=== PATIENT | male | born 1965 | race Caucasian/White ===

== ENCOUNTER 2017-02-28 10:04 | Inpatient (IN) | payer OTHER ==
[~2017-02-28] VITALS: Ht 167.6 cm; Wt 97.3 kg
[~2017-02-28 10:04] MED LIST: NAPROSYN500 MG PO; NAPROXEN500 MG PO; NO HOME MED; ULTRAM50 MG PO
[2017-02-28 10:30] LABS: HEMATOCRIT 41.5 % (38.0-50.0); MCH 26.3 PG (29.0-34.0); MCV 79.8 FL (86-99); MEAN PLAT.VOLUME 10.5 uM^3 (9.0-12.4); PLATELET COUNT 198 K/uL (156-360); RBC DIS.WIDTH-CV 12.7 % (11.8-14.6); RBC DIS.WIDTH-SD 36.2 % (39-53); WHITE BLOOD COUNT 12.8 K/uL (4.1-10.2)
[2017-02-28 10:40] LABS: CHLORIDE 102 mEq/L (99-109); SODIUM 135 mEq/L (136-147)
[2017-02-28 10:41] LABS: GLUCOSE 126 mg/dL (70-99)
[2017-02-28 10:43] LABS: ANION GAP 18 MEQ/L (2-14)
[2017-02-28 10:45] LABS: GFR ESTIMATE (CALCULATED) 4 mL/min/
[2017-02-28 10:46] LABS: UREA NITROGEN (BUN) 88 mg/dL (9-23)
[2017-02-28 15:06] LABS: COLOR YELLOW ((YELLOW)); GLUCOSE (STRIP) NEGATIVE; KETONES NEGATIVE; LEUKOCYTES LARGE; NITRITE NEGATIVE; PH, URINE 6.5 (5-8); PROTEIN (STRIP) 30; SPECIFIC GRAVITY 1.007 (1.000-1.030); UROBILINOGEN 0.2 MG/DL (0.2-1.0)
[2017-02-28 15:07] LABS: ADD MIUA? YES; BILIRUBIN NEGATIVE; BLOOD LARGE
[2017-02-28 15:08] LABS: RED BLOOD CELLS 40-50 /HPF (0-5)
[2017-02-28 15:09] LABS: BACTERIA 2+ /HPF; EPITHELIAL CELLS RARE /HPF; MUCUS RARE /LPF; UCUL ADDED? YES
[2017-02-28 15:55] VITALS: BP 143/81
[2017-02-28 16:27] VITALS: BP 143/81
[2017-02-28 20:11] VITALS: BP 158/88
[2017-02-28 23:24] VITALS: BP 132/80
[2017-03-01 06:09] LABS: EOSINOPHIL (%) 1.2 % (0-5); EOSINOPHIL COUNT 0.1 K/uL (0-0.3); HEMATOCRIT 34.9 % (38.0-50.0); IMMATURE GRANULOCYTE (%) 0.5 % (0.0-0.7); IMMATURE GRANULOCYTE COUNT 0.1 K/uL; INSTRUMENT ABS NEUTROPHIL CT 5.9 K/uL; LYMPHOCYTE COUNT 2.2 K/uL (1.0-2.8); MCHC 32.4 G/DL (30.0-36.0); MCV 80.2 FL (86-99); MEAN PLAT.VOLUME 10.3 uM^3 (9.0-12.4); MONOCYTE (%) 9.3 % (3-12); MONOCYTE COUNT 0.9 K/uL (0-0.8); NEUTROPHIL (%) 64.5 % (45-76); NEUTROPHIL COUNT 5.9 K/uL (1.8-6.4); PLATELET COUNT 198 K/uL (156-360); RBC DIS.WIDTH-CV 13.1 % (11.8-14.6); RED BLOOD COUNT 4.35 M/uL (4.00-5.50); WHITE BLOOD COUNT 9.2 K/uL (4.1-10.2)
[2017-03-01 06:28] LABS: ANION GAP 14 MEQ/L (2-14); CHLORIDE 109 MEQ/L (99-109); GFR ESTIMATE (CALCULATED) 7 mL/min/; IRON 27 MCG/DL (35-150); SAMPLE HEMOLYSIS CHECK 0; SAMPLE ICTERIC CHECK 0; SAMPLE LIPEMIA CHECK 0; SODIUM 141 MEQ/L (136-147); UREA NITROGEN (BUN) 75 mg/dL (9-23)
[2017-03-01 06:30] LABS: GLUCOSE 84 mg/dL (70-99)
[2017-03-01 07:21] VITALS: BP 132/72
[2017-03-01 16:22] VITALS: BP 148/86
[2017-03-01 23:40] VITALS: BP 167/89
[2017-03-02 05:59] LABS: EOSINOPHIL (%) 2.4 % (0-5); EOSINOPHIL COUNT 0.2 K/uL (0-0.3); HEMATOCRIT 34.8 % (38.0-50.0); IMMATURE GRANULOCYTE (%) 0.3 % (0.0-0.7); INSTRUMENT ABS NEUTROPHIL CT 4.3 K/uL; LYMPHOCYTE COUNT 2.3 K/uL (1.0-2.8); MCH 26.7 PG (29.0-34.0); MCV 80.9 FL (86-99); MEAN PLAT.VOLUME 10.2 uM^3 (9.0-12.4); MONOCYTE (%) 10.4 % (3-12); MONOCYTE COUNT 0.8 K/uL (0-0.8); NEUTROPHIL (%) 56.8 % (45-76); NEUTROPHIL COUNT 4.3 K/uL (1.8-6.4); PLATELET COUNT 222 K/uL (156-360); RBC DIS.WIDTH-CV 13.4 % (11.8-14.6); RBC DIS.WIDTH-SD 39.3 % (39-53); WHITE BLOOD COUNT 7.6 K/uL (4.1-10.2)
[2017-03-02 06:29] LABS: ANION GAP 8 MEQ/L (2-14); CHLORIDE 115 MEQ/L (99-109); GFR ESTIMATE (CALCULATED) 20 mL/min/; GLUCOSE 93 mg/dL (70-99); MAGNESIUM 1.9 mg/dl (1.3-2.7); SAMPLE HEMOLYSIS CHECK 0; SAMPLE ICTERIC CHECK 0; SAMPLE LIPEMIA CHECK 0; SODIUM 144 MEQ/L (136-147); UREA NITROGEN (BUN) 52 mg/dL (9-23)
[2017-03-02 07:25] VITALS: BP 171/96
[2017-03-02 09:09] LABS: UR CREATININE CONCENTRATION 87.9 MG/DL
[2017-03-02 13:15] VITALS: BP 168/90
[2017-03-02 14:55] VITALS: BP 152/84
[2017-03-03 00:10] VITALS: BP 139/80
[2017-03-03 06:33] LABS: BASOPHIL COUNT 0.1 K/uL (0-0.1); EOSINOPHIL (%) 3.3 % (0-5); EOSINOPHIL COUNT 0.2 K/uL (0-0.3); HEMATOCRIT 35.9 % (38.0-50.0); IMMATURE GRANULOCYTE (%) 0.3 % (0.0-0.7); INSTRUMENT ABS NEUTROPHIL CT 4.1 K/uL; MCH 25.9 PG (29.0-34.0); MCHC 31.8 G/DL (30.0-36.0); MCV 81.6 FL (86-99); MEAN PLAT.VOLUME 10.1 uM^3 (9.0-12.4); MONOCYTE (%) 8.2 % (3-12); MONOCYTE COUNT 0.6 K/uL (0-0.8); NEUTROPHIL (%) 59.2 % (45-76); NEUTROPHIL COUNT 4.1 K/uL (1.8-6.4); PLATELET COUNT 236 K/uL (156-360); RBC DIS.WIDTH-CV 13.3 % (11.8-14.6); RBC DIS.WIDTH-SD 39.6 % (39-53); WHITE BLOOD COUNT 6.9 K/uL (4.1-10.2)
[2017-03-03 07:00] LABS: ANION GAP 9 MEQ/L (2-14); CHLORIDE 115 MEQ/L (99-109); GFR ESTIMATE (CALCULATED) 40 mL/min/; GLUCOSE 92 mg/dL (70-99); POTASSIUM 4.9 MEQ/L (3.7-5.4); SAMPLE HEMOLYSIS CHECK 0; SAMPLE ICTERIC CHECK 0; SAMPLE LIPEMIA CHECK 0; SODIUM 143 MEQ/L (136-147); UREA NITROGEN (BUN) 34 mg/dL (9-23)
[2017-03-03 07:30] VITALS: BP 132/94
[2017-03-03] MEDS ORDERED: AMLODIPINE BESYL5 MG PO (08:02)
[2017-03-03] MEDS ORDERED: ENDOCET 5-3251 EACH PO (08:02)
== END 2017-03-03 09:29 | disposition home or self-care (01) | DRG 690 ==
LOC: EME 10:04 → 5EAST 14:15 → EDOF 14:15 → ENRESERV 14:17 → 5EAST 15:48 → ENPENDDIS 03-03 → 5EAST 03-03 09:29
PROVIDERS: Internal Medicine; Internal Medicine Nephrology
DX: N13.6 Pyonephrosis (principal); N17.9 Acute kidney failure, unspecified; K80.12 Calculus of gallbladder with acute and chronic cholecystitis without obstruction; N18.9 Chronic kidney disease, unspecified; I12.9 Hypertensive chronic kidney disease with stage 1 through stage 4 chronic kidney disease, or unspecified chronic kidney disease; Z87.442 Personal history of urinary calculi; Z87.891 Personal history of nicotine dependence; N40.1 Benign prostatic hyperplasia with lower urinary tract symptoms; K62.4 Stenosis of anus and rectum; R39.15 Urgency of urination; R63.0 Anorexia; Z68.34 Body mass index [BMI] 34.0-34.9, adult
CPT/HCPCS: 74000; 74176; 74420; 80048; 80069; 81003; 82570; 83540; 83735; 84156; 84466; 85025; 85027; 87086; 99281; 99285; C1758; C1769; C1876; C2617; J0696; J1170; J1644; J2175; J2250; J2765; J3010; J7030; J7050

== ENCOUNTER → 2017-03-24 | Outpatient (CLI) | payer OTHER ==
[~2017-03-24] MED LIST changes: +AMLODIPINE BESYL5 MG PO; +ENDOCET 5-3251 EACH PO
== END | disposition home or self-care (01) ==
LOC: NUC 10:50
DX: N13.30 Unspecified hydronephrosis (principal); N28.89 Other specified disorders of kidney and ureter; R94.4 Abnormal results of kidney function studies; Z96.0 Presence of urogenital implants
CPT/HCPCS: 78709; A9562